=== PATIENT | female | born 1950 | race Asian ===

== ENCOUNTER 2025-04-18 08:15 | Day surgery (SDC) | payer OTHER, MEDICARE, SELFPAY ==
[2025-04-18] VITALS (7 sets, daily range): BP systolic 95–143; BP diastolic 64–96; BMI 33.2
[2025-04-18 09:04] LABS: ALT (SGPT) 22 U/L (0-35); AST (SGOT) 21 U/L (14-36); Albumin 4.3 g/dl (3.5-5.0); Alkaline Phosphatase 35 U/L (38-126); Blood Urea Nitrogen 14 mg/dl (7-17); Calcium 9.3 mg/dl (8.4-10.2); Carbon Dioxide 30 mmol/L (22-30); Chloride 103 mmol/L (98-107); Estimated Creatinine Clearance 47 ml/min; Glucose 99 mg/dl (70-99); Potassium 4.2 mmol/L (3.5-5.1); Sodium 138 mmol/L (135-145); Total Bilirubin 0.6 mg/dl (0.2-1.3); Total Protein 7.1 g/dl (6.3-8.2); eGFR > 60.00
[2025-04-18] MEDS: NSS 223 ML IV (09:18)
--- NOTE | 2025-04-18 11:36 | ITS.CL.PN ---
[employer] - Procedure Note
Procedure
Procedure Note:
CARDIAC CATHETERIZATION REPORT
Date of Procedure: 04/18/2025
Referring: Dr. Geovanni Mace MD
Indication: Concern for acute coronary syndrome, positive cardiac stress test
PROCEDURE(S)
1. left heart catheterization
2. coronary angiography
ACCESS: 6F right radial artery (closure: radial band)
CATHETERS
1. 6F JR4
2. 6F JL3.5
MODERATE SEDATION: 30 minutes of moderate sedation was utilized. An independent medical technologist clinical was present to assist with and help manage the patient's level of consciousness and physiologic status.
HEMODYNAMIC DATA
LV 117/12 (EDP 20) mmHg
AO 118/59 (mean 87) mmHg
CORONARY ANGIOGRAPHY
Dominance: Right
LM: Large, normal
LAD: Large vessel giving rise to a moderate caliber D1 and small D2 before wrapping around the apex. There are trivial luminal irregularities only.
LCx: Large vessel giving rise to a large branching OM1, moderate caliber OM2, and small OM 3. There are trivial luminal irregularities only.
RCA: moderate caliber vessel giving rise to a small RPDA and several small RPL branches. There are trivial luminal irregularities only.
RADIATION: dose 166 mGy; DAP 10.2 Gy*cm2; fluoroscopy time 2.4 min
CONCLUSIONS
1. Nonobstructive coronary artery disease as described in a right dominant system
2. Mildly elevated LV filling pressure and no aortic stenosis
RECOMMENDATIONS
1. Primary prevention of coronary artery disease
2. Further workup for etiology of ANOCA
3.
Copy to: Dr. Geovanni Nance MD (inside sales account manager); Dr. Rocky Bautista MD (PCP)
Signed: Paul Peck MD, PhD
== END 2025-04-18 14:00 | disposition home or self-care (01) ==
LOC: CATH 08:15
PROVIDERS: ATTENDING PHYSICIAN Student in an Organized Health Care Education/Training Program; FAMILY PHYSICIAN Internal Medicine; OTHER PHYSICIAN Internal Medicine Cardiovascular Disease
DX: R94.39 Abnormal result of other cardiovascular function study (principal); R07.89 Other chest pain; I10 Essential (primary) hypertension; E78.5 Hyperlipidemia, unspecified; R73.03 Prediabetes; Z85.3 Personal history of malignant neoplasm of breast; Z82.49 Family history of ischemic heart disease and other diseases of the circulatory system; Z79.82 Long term (current) use of aspirin
CPT/HCPCS: C1894; 80053; 93458; Q9967